=== PATIENT | female | born 1975 ===

== ENCOUNTER 2017-12-08 09:52 | Emergency (ER) | payer OTHER ==
[2017-12-08 09:53] VITALS: BMI 27.4
[2017-12-08 09:58] VITALS: BP 146/71; PULSE 88; RESP 17; TEMP 98.8; O2SAT 97
--- NOTE | 2017-12-08 10:25 | ED PDOC ---
HPI: Skin/Bite Injury Time Seen by Provider: 12/08/17 10:03 Chief Complaint (Nursing): Abnormal Skin Integrity Chief Complaint (Provider): rash to lower legs and arm pits History Per: Patient History/Exam Limitations: no limitations Onset/Duration Of Symptoms: Days (x10 ) Current Symptoms Are (Timing): Still Present Location Of Injury: Right: Leg, Left: Leg Quality Of Symptoms: Itching Additional Complaint(s): Asia Reed is a 42 year old female, with no significant past medical history, who presents to the emergency department complaining of an itchy rash to lower legs and armpits onset for x10 days. Patient states she recently started removing hair with tweezers on legs and armpits. She used Benadryl, Calamine and Gold Bone eczema relief cream with temporary relief of symptoms. She denies any fever, chills or other medical complaints. PMD: None provided. Past Medical History Reviewed: Historical Data, Nursing Documentation Vital Signs: Last Vital Signs Temp 98.8 F 12/08/17 09:57 Pulse 88 12/08/17 09:57 Resp 17 12/08/17 09:57 BP 146/71 12/08/17 09:57 Pulse Ox 97 12/08/17 10:28 - Medical History PMH: No Chronic Diseases Denies: Depression, Chronic Kidney Disease - Family History Family History: States: Unknown Family Hx - Social History Current smoker - smoking cessation education provided: No Alcohol: None Drugs: Denies - Home Medications Home Medications: Ambulatory Orders Medication Instructions Recorded DiphenhydrAMINE [Benadryl] 25 mg PO Q6 #10 cap 07/02/15 Miconazole 2% Vaginal [Monistat 7 1 applic VG DAILY #1 tube 07/02/15 Vaginal Cream] Pantoprazole [Protonix EC Tab] 40 mg PO DAILY 09/09/15 Mupirocin 2% Cream [Bactroban 1 applic EXT BID #1 tube 12/08/17 Cream] hydrOXYzine HCl [Atarax] 25 mg PO Q6H PRN #20 tab 12/08/17 - Allergies Allergies/Adverse Reactions: Allergies Allergy/AdvReac Type Severity Reaction Status Date / Time No Known Allergies Allergy Verified 12/08/17 10:12 Review of Systems ROS Statement: Except As Marked, All Systems Reviewed And Found Negative Constitutional: Negative for: Fever, Chills Skin: Positive for: Rash (itchy, to lower legs) Physical Exam - Reviewed Nursing Documentation Reviewed: Yes Vital Signs Reviewed: Yes - Physical Exam Appears: Positive for: No Acute Distress (comfortable) Head Exam: Positive for: ATRAUMATIC, NORMAL INSPECTION, NORMOCEPHALIC Skin: Positive for: Normal Color, Warm, Dry, Rash (Bilateral legs apparent follicular rash) Eye Exam: Positive for: Normal appearance Neck: Positive for: Painless ROM Extremity: Positive for: Normal ROM (upper and lower extremities). Negative for : Deformity, Swelling Neurologic/Psych: Positive for: Alert, Oriented - ECG O2 Sat by Pulse Oximetry: 97 (RA) Pulse Ox Interpretation: Normal Medical Decision Making Medical Decision Making: Time: 10:03 Initial Impression: Folliculitis due to hair removal by shaun Initial Plan: 10:25 Patient is medically stable, and requires no further treatment in the ED at this time. Patient will be discharged home with Rx for Atarax and Bactroban cream. Counseling was provided and all questions were answered regarding diagnosis and need for follow up with clinic. There is agreement to discharge plan. Return if symptoms persist or worsen. ----- Scribe Attestation: Documented by Gary Yusuf, acting as a scribe for Yessica Stone MD. Provider Scribe Attestation: All medical record entries made by the Scribe were at my direction and personally dictated by me. I have reviewed the chart and agree that the record accurately reflects my personal performance of the history, physical exam, medical decision making, and the department course for this patient. I have also personally directed, reviewed, and agree with the discharge instructions and disposition. Disposition - Clinical Impression Clinical Impression: Itching, Folliculitis - Disposition Referrals: [facility] [Outside] Disposition: Routine/Home Disposition Time: 10:25 Condition: STABLE Additional Instructions: ASIA REED, thank you for letting us take care of you today. Your provider was Yessica Stone MD and you were treated for B/L LEG RASH. The emergency medical care you received today was directed at your acute symptoms. If you were prescribed any medication, please fill it and take as directed. It may take several days for your symptoms to resolve. Return to the Emergency Department if your symptoms worsen, do not improve, or if you have any other problems. Please contact your doctor or call one of the physicians/clinics you have been referred to that are listed on the Patient Visit Information form that is included in your discharge packet. Bring any paperwork you were given at discharge with you along with any medications you are taking to your follow up visit. Our treatment cannot replace ongoing medical care by a primary care provider outside of the emergency department. Thank you for allowing the [facility] team to be part of your care today. If you had an X-Ray or CT scan: A Radiologist will review the ED reading if any change in treatment is needed we will contact you. If you had a blood, urine, or wound culture: It will take several days for the results, if any change in treatment is needed we will contact you. If you had an STI test: It will take 48 hours for the results. Please call after 1 week if you have not heard back. Prescriptions: hydrOXYzine HCl [Atarax] 25 mg PO Q6H PRN #20 tab PRN Reason: Itching / Pruritus Mupirocin 2% Cream [Bactroban Cream] 1 applic EXT BID #1 tube Instructions: Folliculitis (DC), Itchy Skin Forms: [employer] (French) Print Language: MALAYSIAN
== END 2017-12-08 10:50 | disposition home or self-care (01) ==
LOC: H.ER 09:52
DX: L73.9 Follicular disorder, unspecified (principal); L30.9 Dermatitis, unspecified